=== PATIENT | female | born 1980 | race Asian ===

== ENCOUNTER 2017-01-26 12:16 | Emergency (ER) | payer SELFPAY ==
[~2017-01-26] VITALS: Ht 134.6 cm; Wt 59.0 kg
[2017-01-26 12:25] VITALS: BP 111/80
--- NOTE | 2017-01-26 13:21 | PHYS DOC ---
Past Medical History Past Medical History: No Pertinent History Past Surgical History: Hysterectomy, Tubal ligation Alcohol Use: Occasionally Drug Use: None Adult General Chief Complaint Chief Complaint: FLU SYMPTOM [facility] HPI Patient is a 36 year old female presents to the emergency department stating that she's had nasal congestion runny nose and a sore throat since Tuesday. She states that she has been having fevers as well however she has not taken her temperature. Patient states that she has not been around any sick patient people or patient's. Patient states she's been taken 400 mg of ibuprofen to help with her generalized body aches and discomfort. She states that this is helped however she just feels tired and congested. Review of Systems Review of Systems Constitutional: Subjective fever Eyes: Denies change in visual acuity, redness, or eye pain [] HENT: nasal congestion and sore throat [] Respiratory: Denies cough or shortness of breath [] Cardiovascular: No additional information not addressed in HPI [] GI: Denies abdominal pain, nausea, vomiting, bloody stools or diarrhea [] : Denies dysuria or hematuria [] Musculoskeletal: Denies back pain or joint pain [] Integument: Denies rash or skin lesions [] Neurologic: Denies headache, focal weakness or sensory changes [] Endocrine: Denies polyuria or polydipsia [] Allergies Allergies Allergies Coded Allergies Type Severity Reaction Last Updated Verified No Known Drug Allergies 01/26/17 No Physical Exam Physical Exam Constitutional: Well developed, well nourished, no acute distress, non-toxic appearance. [] HENT: Normocephalic, atraumatic, bilateral external ears normal, oropharynx moist, no oral exudates, nose normal. Patient started appears to be without erythematous or exudate there does appear to be postnasal drip that is clear in color. No frontal or maxillary sinus tenderness noted. No anterior cervical adenopathy noted. Eyes: PERRLA, EOMI, conjunctiva normal, no discharge. [] Neck: Normal range of motion, no tenderness, supple, no stridor. [] Cardiovascular:Heart rate regular rhythm, no murmur [] Lungs & Thorax: Bilateral breath sounds clear to auscultation [] Skin: Warm, dry, no erythema, no rash. [] Back: No tenderness Extremities: No tenderness, no cyanosis, no clubbing, ROM intact, no edema. [] Neurologic: Alert and oriented X 3, normal motor function, normal sensory function, no focal deficits noted. [] Psychologic: Affect normal, judgement normal, mood normal. [] Current Patient Data Vital Signs Vital Signs Date Time Temp Pulse Resp B/P (MAP) Pulse Ox O2 Delivery O2 Flow Rate FiO2 01/26/17 12:25 98.2 70 18 97 Room Air 98.2 Lab Values Laboratory Tests Test 01/26/17 12:50 Influenza Type A Antigen Negative (NEGATIVE) Influenza Type B Antigen Negative (NEGATIVE) EKG EKG [] Radiology/Procedures Radiology/Procedures [] Course & Med Decision Making Course & Med Decision Making Pertinent Labs and Imaging studies reviewed. (See chart for details) Patient's flu swab was negative for influenza. I suspect that this is a viral infection since this is only been 3 days however I we will provide the patient with amoxicillin. She was instructed to have this filled in approximately 3-4 days if she does not feel like she's getting better. Also recommended Zyrtec and Claritin over the counter. Recommended plenty of fluids recommended to continue to use ibuprofen for generalized body aches and discomfort. Patient agrees with discharge instructions, treatment regimens and follow-up recommendations. Signs and symptoms to return back to emergency department has been provided. All questions and concerns for this patient has been answered at the bedside. [] Dragon Disclaimer Dragon Disclaimer This electronic medical record was generated, in whole or in part, using a voice recognition dictation system. Departure Departure Impression: Primary Impression: URI (upper respiratory infection) Disposition: 01 HOME, SELF-CARE Condition: STABLE Referrals: NO PCP (PCP) Patient Instructions: Upper Respiratory Infection, Adult, [id number] Additional Instructions: Activity as tolerated. Have your antibiotics filled in approximately 3-4 days if you're not feeling better. Tylenol or ibuprofen for generalized body aches and discomfort as well as fevers. Drink plenty of fluids. You may take Zyrtec or Claritin [id number] to help with the nasal drainage and the back of your throat. Follow-up with a primary care physician in the next 3-5 days. Return back to emergency prior signs and symptoms of become worse. Scripts Amoxicillin (AMOXICILLIN) 500 Mg Capsule 1 CAP PO BID, #20 CAP Prov: SEBASTIAN CLEMONS APRN 01/26/17 Problem Qualifiers Primary Impression: URI (upper respiratory infection) URI type: unspecified URI Qualified Codes: J06.9 - Acute upper respiratory infection, unspecified SEBASTIAN CLEMONS INDUSTRIAL [employer]GI[employer] TECHNICIAN Jan 26, 2017 13:21
[2017-01-26 13:22] LABS: OBC FLU VALID
[2017-01-26] MEDS ORDERED: AMOX500C PO (13:27)
== END 2017-01-26 13:45 | disposition home or self-care (01) ==
LOC: ER 12:16
DX: J06.9 Acute upper respiratory infection, unspecified (principal)
CPT/HCPCS: 87804; 99284